=== PATIENT | male | born 1995 | race Caucasian/White ===

== ENCOUNTER 2018-07-03 08:50 | Emergency (ER) | payer OTHER ==
[2018-07-03 09:07] VITALS: BP 146/94
--- NOTE | 2018-07-03 09:29 | ED Physician Documentation ---
History of Present Illness - Stated complaint Stated Complaint: RT FOOT PX - Chief complaint Chief Complaint: Ext Problem - History obtained from History obtained from: Patient, Family - History of Present Illness Timing: How many days ago (8) Pain level max: 7 Pain level now: 4 - Additonal information Additional information: R foot pain, worse with walking and better with rest. Patient states he runs 2 to 3 miles a day. Does not recall any specific injury Review of Systems Musculoskeletal: denies: Neck pain, Back pain Neurologic: denies: Focal weakness, Numbness PD PAST MEDICAL HISTORY - Past Medical History Past Medical History: No - Past Surgical History Past Surgical History: No - Present Medications Home Medications: Ambulatory Orders Medication Instructions Recorded Confirmed Hydrocodone/Acetaminophen 1 - 2 each PO Q6H PRN #14 tablet 07/03/18 [Hydrocodon-Acetaminophen 5-325] Ibuprofen [Motrin] 800 mg PO Q8H PRN #30 tablet 07/03/18 - Allergies Allergies/Adverse Reactions: Allergies Allergy/AdvReac Type Severity Reaction Status Date / Time No Known Drug Allergies Allergy Verified 07/03/18 09:06 - Social History Does the pt smoke?: No Smoking Status: Never smoker PD ED PE NORMAL - Vitals Vital signs reviewed: Yes - General General: Alert and oriented X 3, No acute distress - Derm Derm: Warm and dry - Extremities Extremities: Other (Tender palpation diffusely along the plantar and dorsal aspects of the right foot. No focal tenderness. No swelling. Neurovascularly intact) - Neuro Neuro: Alert and oriented X 3 - Psych Psych: Normal mood, Normal affect Results - Vitals Vitals: Vital Signs - 24 hr 07/03/18 09:05 Temperature 36.0 C L Heart Rate 92 Respiratory 14 Rate Blood Pressure 146/94 H O2 Saturation 98 Oxygen O2 Source Room air - Rads (name of study) Right foot x-ray Radiology: Prelim report reviewed, EMP read contemporaneously, See rad report (Focal endosteal sclerosis involving the fourth metatarsal with mild medial cortical thickening. Stress reaction/stress fracture is a consideration. 2. No additional abnormal periosteal reaction. No lucent fracture line. 3. Exam otherwise as above.) PD MEDICAL DECISION MAKING - ED course Complexity details: reviewed results, re-evaluated patient, considered differential, d/w patient ED course: Patient with a possible stress fracture. Placed in a postoperative shoe and given crutches. Will prescribe medication for pain control. We will follow-up with his doctor and/or orthopedics for further care. Patient counseled regarding signs and symptoms for which I believe and urgent re-evaluation would be necessary. Patient with good understanding of and agreement to plan and is comfortable going home at this time This document was made in part using voice recognition software. While efforts are made to proofread this document, sound alike and grammatical errors may occur. Departure - Departure Disposition: 01 Home, Self Care Clinical Impression: Stress fracture Qualifiers: Encounter type: initial encounter Stress fracture site: foot Laterality: right Qualified Code(s): M84.374A - Stress fracture, right foot, initial encounter for fracture Condition: Good Instructions: Fx Stress Follow-Up: your,doctor in 1 week [Other] [facility] [Provider Group] - Within 1 week Prescriptions: Hydrocodone/Acetaminophen [Hydrocodon-Acetaminophen 5-325] 1 - 2 each PO Q6H PRN #14 tablet PRN Reason: pain Ibuprofen [Motrin] 800 mg PO Q8H PRN #30 tablet PRN Reason: PAIN &/OR FEVER Comments: You may bear weight as tolerated. Return if you worsen. We do need to minimize your impact on that foot. They may want to change you into a walking boot in a week or so if you are still having discomfort. Do not drink alcohol or drive while on narcotic pain medicine. Note that many narcotic pain relievers also contain tylenol/acetaminophen. Pleas e ensure that your total dose of acetaminophen from all sources does not exceed 3 grams (3000mg) per day. You may constipated on this medication, take a stool softener such as "Colace" twice a day while you are on it. Also recommend a [id number] laxative such as senna or MiraLAX any day that you do not have a bowel movement. If you received narcotic pain medication in the emergency department, do not drive or operate machinery for the next 24 hours. Discharge Date/Time: 07/03/18 10:37
--- NOTE | 2018-07-03 09:53 | XRAY Report ---
Reason: pain swelling x 1 week after running Procedure Date: 07/03/2018 Accession Number: [id number] / [id number] Procedure: XR - Foot 3 View RT CPT Code: FULL RESULT: EXAM: RIGHT FOOT RADIOGRAPHY EXAM DATE: 07/03/2018 09:28 AM. CLINICAL HISTORY: Pain swelling x 1 week after running. COMPARISON: None. TECHNIQUE: 3 views. FINDINGS: Bones: Focal endosteal sclerosis involving medial aspect of the distal fourth metatarsal shaft seen best AP and oblique. L. No other abnormal periosteal reaction. No lucent fractures or bone lesions. Joints: Normal. No subluxations. Soft Tissues: Normal. No soft tissue swelling. IMPRESSION: 1. 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 Stress reaction/stress fracture is a consideration. 2. No additional abnormal periosteal reaction. No lucent fracture line. 3. Exam otherwise as above. [facility]
== END 2018-07-03 10:37 | disposition home or self-care (01) ==
LOC: ED 08:50
DX: M84.374A Stress fracture, right foot, initial encounter for fracture (principal); X58.XXXA Exposure to other specified factors, initial encounter; Y93.02 Activity, running
CPT/HCPCS: 99283